=== PATIENT | male | born 1945 | race Caucasian/White ===

== ENCOUNTER 2020-07-24 10:27 | Outpatient (REF) | payer MEDICARE, SELFPAY ==
[2020-07-24 11:25] LABS: Cholesterol 123 mg/dL; HDL Cholesterol 48 mg/dL; LDL Cholesterol Calculated 63 mg/dl; Triglycerides 64 mg/dL
[2020-07-24 11:47] LABS: Thyroid Stimulating Hormone 1.43 uIU/mL (0.32-4.0)
== END 2020-07-24 10:28 | disposition home or self-care (01) ==
LOC: HO.LAB 10:27
PROVIDERS: PCP Internal Medicine; Visit Provider Internal Medicine
DX: I10 Essential (primary) hypertension (principal)
CPT/HCPCS: 36415; 80061; 84443

== ENCOUNTER 2021-06-11 10:05 | Outpatient (REF) | payer MEDICARE, SELFPAY ==
[2021-06-11 10:32] LABS: MANUAL DIFF FLAG NO
[2021-06-11 11:28] LABS: Basophils Percent Auto 0.4 % (0-2); Eosinophils Absolute Auto 0.2 X10*3/uL (0.0-0.4); Eosinophils Percent Auto 2.1 % (0-4); Hematocrit 44.9 % (42.0-52.0); Hemoglobin 15.6 g/dl (14.0-18.0); Imm Gran Abs Auto 0.03 X10*3/uL (0.00-0.03); Imm Gran Pct Auto 0.4 % (0.0-0.4); Lymphocytes Absolute Auto 1.5 X10*3/uL (1.2-4.9); Lymphocytes Percent Auto 18.9 % (20-40); Mean Corpuscular HGB Conc 34.7 g/dl (31.0-36.0); Mean Corpuscular Hemoglobin 31.5 pg (27.0-33.0); Mean Corpuscular Volume 90.7 fL (80.0-98.0); Mean Platelet Volume 10.9 fL (9.4-12.4); Monocytes Absolute Auto 0.9 X10*3/uL (0.1-1.2); Monocytes Percent Auto 10.8 % (2-11); Neutrophils Absolute Auto 5.4 x10*3/uL (2.0-8.3); Neutrophils Percent Auto 67.4 % (45-73); Platelet Count 196 X10*3/uL (160-400); Red Blood Count 4.95 X10*6/uL (4.60-5.80); Red Cell Distribution Width 12.2 % (11.0-16.0)
[2021-06-11 11:40] LABS: Estimated Average Glucose 117 mg/dL; Hemoglobin A1c % 5.7 %
[2021-06-11 11:46] LABS: Alanine Aminotransferase 13 U/L (0-40); Alkaline Phosphatase 69 U/L (39-117); Anion Gap 11 (12-20); Aspartate Amino Transferase 14 U/L (5-37); Bilirubin Total 1.4 mg/dL (0.0-1.0); Blood Urea Nitrogen 18 mg/dL (9-16); Calcium 9.1 mg/dL (8.4-10.2); Carbon Dioxide 27 mmol/L (22-29); Chloride 108 mmol/L (96-108); Cholesterol 120 mg/dL; Estimated Glomerular Filt Rate > 60; Glucose Fasting 113 mg/dL (60-99); HDL Cholesterol 50 mg/dL; LDL Cholesterol Calculated 57 mg/dl; Potassium 3.5 mmol/L (3.3-5.1); Sodium 142 mmol/L (135-145); Total Protein 6.4 g/dL (6.5-8.0); Triglycerides 65 mg/dL
[2021-06-11 12:08] LABS: Thyroid Stimulating Hormone 1.79 uIU/mL (0.32-4.0)
== END 2021-06-11 10:06 | disposition home or self-care (01) ==
LOC: HO.LAB 10:05
PROVIDERS: PCP Internal Medicine; Visit Provider Internal Medicine
DX: Z00.00 Encounter for general adult medical examination without abnormal findings (principal); E11.9 Type 2 diabetes mellitus without complications; E03.9 Hypothyroidism, unspecified
CPT/HCPCS: 36415; 80053; 80061; 83036; 84443; 85025

== ENCOUNTER 2022-03-18 09:48 | Outpatient (REF) | payer MEDICARE, SELFPAY ==
[2022-03-18 10:15] LABS: MANUAL DIFF FLAG NO
[2022-03-18 10:49] LABS: Basophils Absolute Auto 0.1 X10*3/uL (0.0-0.2); Basophils Percent Auto 0.7 % (0-2); Eosinophils Absolute Auto 0.2 X10*3/uL (0.0-0.4); Eosinophils Percent Auto 2.6 % (0-4); Hematocrit 44.9 % (42.0-52.0); Hemoglobin 15.4 g/dl (14.0-18.0); Imm Gran Abs Auto 0.03 X10*3/uL (0.00-0.03); Imm Gran Pct Auto 0.4 % (0.0-0.4); Lymphocytes Absolute Auto 1.4 X10*3/uL (1.2-4.9); Mean Corpuscular HGB Conc 34.3 g/dl (31.0-36.0); Mean Corpuscular Hemoglobin 31.1 pg (27.0-33.0); Mean Corpuscular Volume 90.7 fL (80.0-98.0); Mean Platelet Volume 10.5 fL (9.4-12.4); Monocytes Absolute Auto 0.9 X10*3/uL (0.1-1.2); Monocytes Percent Auto 12.1 % (2-11); Neutrophils Absolute Auto 5.1 x10*3/uL (2.0-8.3); Neutrophils Percent Auto 66.2 % (45-73); Platelet Count 219 X10*3/uL (160-400); Red Blood Count 4.95 X10*6/uL (4.60-5.80); Red Cell Distribution Width 12.3 % (11.0-16.0); White Blood Count 7.7 X10*3/uL (4.8-10.8)
[2022-03-18 11:19] LABS: Alanine Aminotransferase 12 U/L (0-40); Albumin Level 4.1 g/dL (3.5-5.0); Alkaline Phosphatase 79 U/L (39-117); Anion Gap 13 (12-20); Aspartate Amino Transferase 16 U/L (5-37); Bilirubin Total 1.5 mg/dL (0.0-1.0); Blood Urea Nitrogen 19 mg/dL (9-16); Calcium 9.6 mg/dL (8.4-10.2); Carbon Dioxide 29 mmol/L (22-29); Chloride 106 mmol/L (96-108); Cholesterol 116 mg/dL; Estimated Glomerular Filt Rate 60; Glucose Fasting 121 mg/dL (60-99); HDL Cholesterol 46 mg/dL; LDL Cholesterol Calculated 58 mg/dl; Potassium 3.6 mmol/L (3.3-5.1); Sodium 144 mmol/L (135-145); Total Protein 6.7 g/dL (6.5-8.0); Triglycerides 62 mg/dL
== END 2022-03-18 09:49 | disposition home or self-care (01) ==
LOC: HO.LAB 09:48
PROVIDERS: PCP Internal Medicine; Visit Provider Internal Medicine
DX: Z00.00 Encounter for general adult medical examination without abnormal findings (principal); Z13.0 Encounter for screening for diseases of the blood and blood-forming organs and certain disorders involving the immune mechanism
CPT/HCPCS: 36415; 80053; 80061; 85025

== ENCOUNTER 2022-10-27 08:19 | Day surgery (SDC) | payer MEDICARE, SELFPAY ==
[2022-10-27] MEDS: Sodium Phosphate,Mono-Dibasic 133 ML ENEMA PR (08:42)
[2022-10-27 09:01] VITALS: BMI 22.2
--- NOTE | 2022-10-27 09:05 | HO.ANESPROP2 ---
[facility] Active Problems Active Problems: All Active Problems (Updated 10/26/22 @ 08:18 by Alice Jones RN) Hyperlipidemia (Acute) Past Medical History Medical History Afib CHF (congestive heart failure) History of cardioversion HTN (hypertension) Hyperlipidemia Family History Family history of problems with anesthesia: No Surgical History Surgical History H/O colonoscopy No history of previous surgery Social History Social History Housing: House Alcohol intake: current Alcohol intake frequency: holidays/special occasions only Alcohol type: beer Patient Tobacco Use Status: Current someday Tobacco user Tobacco use type: Cigar e-Cigarette/Vaping Use: Never Used Second Hand Smoke Exposure: Yes Advance Directives: No Advance Directives Information Provided: Yes service: No Current occupational status: retired Cognitive needs: No Hearing needs: Yes (hear aide) Vision needs: Yes (glasses) Meds Allergies Allergy/AdvReac Type Severity Reaction Status Date / Time Shellfish Allergy Mild SWELLING Uncoded 10/27/22 08:05 Active Medications: Current Medications Lactated Ringer's (Lr) 1,000 mls @ 100 mls/hr IVCONT .Q10H KEZIA Sodium Biphosphate/Sodium Phosphate (Sodium Phosphate,Kane-Dibasic 133 Ml Enema) 133 ml OH ONCE PRN PRN Reason: Poor Colonoscopy Prep Results Last Admin: 10/27/22 08:42 Dose: 133 ml Home Medications Medication Instructions Recorded Confirmed Last Taken Type apixaban 5 mg tablet 5 mg PO BID 08/14/20 04/02/22 10/23/22 History atorvastatin 20 mg tablet 20 mg PO DAILY 08/14/20 04/02/22 Unknown History losartan 100 mg tablet 100 mg PO DAILY 08/14/20 04/02/22 Unknown History metoprolol tartrate 25 mg tablet 25 mg PO BID 08/14/20 04/02/22 10/27/22 06:00 History chlorthalidone 25 mg tablet 25 mg PO DAILY 04/02/22 04/02/22 Unknown History diltiazem HCl 120 mg 120 mg PO DAILY 04/02/22 04/02/22 Unknown History capsule,extended release 24 hr Exam Exam Date and Time: October 27, 2022 0905 Airway Mallampati Class: II TM Dist: >3cm Neck ROM: Full Heart: irreg reg. Lungs: CTA Assessment and Plan Final Anesthetic Review Family History of Problems with Anesthesia: No NPO: Yes ASA Class: II Final Preanesthetic Review: Meds/Allgs Chart Reviewed, Consent Obtained/Reviewed and Anes Risks/Benef Reviewed Patient Risk: Intermediate Procedure Risk: Low Assessment/Block/Sedation in SS: Assess/Block/Sedation-SS Anesthetic Plan Anesthetic Plan: MAC: Disposition: Standard PACU
[2022-10-27 09:06] VITALS: BP 178/88; PULSE 62; RESP 18; TEMP 36.4; O2SAT 99
[2022-10-27] MEDS: Lactated Ringers 1,000 ML 100 ML IVCONT (09:11)
[2022-10-27 10:56] VITALS: BP 104/56; PULSE 61; RESP 12; TEMP 36.4; O2SAT 96
--- NOTE | 2022-10-27 11:01 | P.BOP_ITS ---
Brief Operative Note Date of Service: 10/27/22 Pre-op diagnosis: Screening Post-op diagnosis: other (Polyps) Procedure: Colonoscopy to the cecum with hot snare polypectomy x 4, and with placement of Resolution clips on each polypectomy site Surgeon: Pablo Mora Anesthesia: MAC Was an Plastics Fabricator used for this Procedure?: No Estimated blood loss (mL): 2.0 Pathology: other (A. Transverse colon polyps B. Ascending colon polyp C. Polyp opposite the Ileocecal valve) Condition: stable Disposition: PACU
[2022-10-27 11:11] VITALS: BP 127/66; PULSE 57; RESP 15; O2SAT 98
[2022-10-27 11:26] VITALS: BP 133/73; PULSE 59; RESP 16; TEMP 36.4; O2SAT 98
--- NOTE | 2022-10-27 11:47 | OP_ITS ---
DATE OF SERVICE: 10/27/2022 SURGEON: Pablo Mora MD INDICATIONS: The patient presents for a followup of personal history of tubular adenomas of the colon and need for colorectal cancer screening. Full consent has been obtained from him for this, including risks of bleeding and perforation. PREOPERATIVE DIAGNOSIS: POSTOPERATIVE DIAGNOSIS: PROCEDURE PERFORMED: Colonoscopy to the cecum with hot snare polypectomy x 4, and placement of 5 resolution clips. ESTIMATED BLOOD LOSS: COMPLICATIONS: ANESTHESIA: Monitored anesthesia care. ASSISTANTS: SPECIMENS: PREOPERATIVE DIAGNOSES: Colorectal cancer screening and personal history of tubular adenomas of the colon. POSTOPERATIVE DIAGNOSES: Colorectal cancer screening and personal history of tubular adenomas of the colon, colon polyps, diverticulosis, and internal hemorrhoids. DESCRIPTION OF PROCEDURE: The patient was placed in the left lateral decubitus position. The digital rectal exam revealed no abnormalities. The Miroi video pediatric colonoscope was entered into the rectum and advanced easily to the cecum. Once in the cecum, I did identify a normal-appearing cecal pouch with appendiceal orifice and a normal-appearing ileocecal valve. The entire cecum and ileocecal valve appeared normal. The scope was then slowly withdrawn assessing all mucosal surfaces carefully. For the most part, preparation was excellent, although there was some residual liquid that had to be irrigated and suctioned away. In the very proximal ascending colon, on a fold opposite the ileocecal valve, was a flat, lobulated polyp measuring approximately 15 mm in diameter. This was removed in piecemeal fashion with multiple pieces recovered by suction. Post- polypectomy, there did not appear to be any definitive residual polyp tissue nor bleeding. Two resolution clips were placed with good deployment and good hemostasis. In the ascending colon was an approximately 10 mm polyp, which was removed by hot snare polypectomy and recovered by suction. The polypectomy site appeared clean, without any sign of residual polyp nor bleeding. A single clip was applied with good deployment and good hemostasis. In the transverse colon were 2 polyps, each approximately 10 mm in size. These were both removed by hot snare polypectomy and recovered by suction. The polypectomy sites appeared clean, without any sign of residual polyp nor bleeding. A single clip was applied to each polypectomy site with good deployment and good hemostasis. I did not visualize any other polyps, colitis, nor angiodysplasia. There was a mild amount of sigmoid diverticulosis. In the rectum, the scope was retroflexed visualizing internal hemorrhoids, but no other pathology. The rectal mucosa appeared normal. The scope was straightened and withdrawn from the patient. He tolerated the procedure well and was returned to the recovery area in stable condition. IMPRESSION: 1. Colon polyps. 2. Diverticulosis. 3. Internal hemorrhoids. PLAN: The results of the pathology will be checked. I would theoretically recommend another colonoscopy in 2 years for further screening and surveillance given these findings and his previous history. At that point, he would be 78 years old, and we would need to take his clinical condition into account. He was advised to resume his Eliquis in 48 hours. He was advised not to use any aspirin nor NSAIDs long-term while on Eliquis. He will otherwise see me on a p.r.n. basis. MD FOUZIA Sims/COY / [phone] MTDD
== END 2022-10-27 12:32 | disposition home or self-care (01) ==
PROVIDERS: PCP Internal Medicine; Visit Provider Internal Medicine
PROC: 0DJD8ZZ Inspection of Lower Intestinal Tract, Via Natural or Artificial Opening Endoscopic (ICD-10-PCS; CPT 45378; principal; 2022-10-27 09:30)
DX: Z12.11 Encounter for screening for malignant neoplasm of colon (principal); Z86.010 Personal history of colon polyps; D12.2 Benign neoplasm of ascending colon; K63.5 Polyp of colon; K57.30 Diverticulosis of large intestine without perforation or abscess without bleeding; K64.8 Other hemorrhoids; I48.91 Unspecified atrial fibrillation; I11.0 Hypertensive heart disease with heart failure; I50.9 Heart failure, unspecified; E78.5 Hyperlipidemia, unspecified; Z79.01 Long term (current) use of anticoagulants; Z79.899 Other long term (current) drug therapy; Z87.891 Personal history of nicotine dependence
CPT/HCPCS: 45385; 88305

== ENCOUNTER 2022-12-27 09:13 | Outpatient (REF) | payer MEDICARE, SELFPAY ==
[2022-12-27 09:30] LABS: MANUAL DIFF FLAG NO
[2022-12-27 10:16] LABS: Basophils Percent Auto 0.5 % (0-2); Eosinophils Absolute Auto 0.2 X10*3/uL (0.0-0.4); Eosinophils Percent Auto 2.1 % (0-4); Hematocrit 43.1 % (42.0-52.0); Hemoglobin 14.8 g/dl (14.0-18.0); Imm Gran Abs Auto 0.03 X10*3/uL (0.00-0.03); Imm Gran Pct Auto 0.4 % (0.0-0.4); Lymphocytes Absolute Auto 1.3 X10*3/uL (1.2-4.9); Lymphocytes Percent Auto 16.9 % (20-40); Mean Corpuscular HGB Conc 34.3 g/dl (31.0-36.0); Mean Corpuscular Hemoglobin 31.4 pg (27.0-33.0); Mean Corpuscular Volume 91.5 fL (80.0-98.0); Mean Platelet Volume 10.5 fL (9.4-12.4); Monocytes Absolute Auto 0.8 X10*3/uL (0.1-1.2); Neutrophils Absolute Auto 5.3 x10*3/uL (2.0-8.3); Neutrophils Percent Auto 69.1 % (45-73); Platelet Count 202 X10*3/uL (160-400); Red Blood Count 4.71 X10*6/uL (4.60-5.80); Red Cell Distribution Width 12.2 % (11.0-16.0); White Blood Count 7.6 X10*3/uL (4.8-10.8)
[2022-12-27 11:04] LABS: Alanine Aminotransferase 22 U/L (0-40); Albumin Level 4.2 g/dL (3.5-5.0); Alkaline Phosphatase 61 U/L (39-117); Anion Gap 16 (12-20); Aspartate Amino Transferase 21 U/L (5-37); Bilirubin Total 1.4 mg/dL (0.0-1.0); Blood Urea Nitrogen 19 mg/dL (9-16); Calcium 9.5 mg/dL (8.4-10.2); Carbon Dioxide 24 mmol/L (22-29); Chloride 109 mmol/L (96-108); Cholesterol 122 mg/dL; Estimated Glomerular Filt Rate 55; Glucose Fasting 116 mg/dL (60-99); HDL Cholesterol 53 mg/dL; LDL Cholesterol Calculated 57 mg/dl; Potassium 3.7 mmol/L (3.3-5.1); Sodium 145 mmol/L (135-145); Total Protein 6.9 g/dL (6.5-8.0); Triglycerides 60 mg/dL
[2022-12-27 11:07] LABS: Thyroid Stimulating Hormone 1.66 uIU/mL (0.32-4.0)
== END 2022-12-27 09:14 | disposition home or self-care (01) ==
LOC: HO.LAB 09:13
PROVIDERS: PCP Internal Medicine; Visit Provider Internal Medicine
DX: E78.5 Hyperlipidemia, unspecified (principal); N28.9 Disorder of kidney and ureter, unspecified; D64.9 Anemia, unspecified; E03.9 Hypothyroidism, unspecified
CPT/HCPCS: 36415; 80053; 80061; 84443; 85025

== ENCOUNTER 2023-04-05 10:44 | Outpatient (REF) | payer MEDICARE, SELFPAY ==
[2023-04-05 11:09] LABS: MANUAL DIFF FLAG NO
[2023-04-05 11:51] LABS: Basophils Absolute Auto 0.1 X10*3/uL (0.0-0.2); Basophils Percent Auto 0.7 % (0-2); Eosinophils Absolute Auto 0.1 X10*3/uL (0.0-0.4); Eosinophils Percent Auto 1.8 % (0-4); Hematocrit 40.5 % (42.0-52.0); Hemoglobin 14.2 g/dl (14.0-18.0); Imm Gran Abs Auto 0.02 X10*3/uL (0.00-0.03); Imm Gran Pct Auto 0.3 % (0.0-0.4); Lymphocytes Absolute Auto 1.6 X10*3/uL (1.2-4.9); Lymphocytes Percent Auto 21.4 % (20-40); Mean Corpuscular HGB Conc 35.1 g/dl (31.0-36.0); Mean Corpuscular Hemoglobin 32.3 pg (27.0-33.0); Mean Platelet Volume 10.7 fL (9.4-12.4); Monocytes Absolute Auto 0.9 X10*3/uL (0.1-1.2); Monocytes Percent Auto 11.4 % (2-11); Neutrophils Absolute Auto 4.9 x10*3/uL (2.0-8.3); Neutrophils Percent Auto 64.4 % (45-73); Platelet Count 201 X10*3/uL (160-400); Red Cell Distribution Width 12.7 % (11.0-16.0); White Blood Count 7.6 X10*3/uL (4.8-10.8)
[2023-04-05 12:48] LABS: Thyroid Stimulating Hormone 0.99 uIU/mL (0.32-4.0)
== END 2023-04-05 10:45 | disposition home or self-care (01) ==
LOC: HO.LAB 10:44
PROVIDERS: PCP Internal Medicine; Visit Provider Internal Medicine
DX: E03.9 Hypothyroidism, unspecified (principal); D64.9 Anemia, unspecified
CPT/HCPCS: 36415; 84443; 85025

== ENCOUNTER 2023-04-07 10:38 | Outpatient (AMB) | payer MEDICARE, SELFPAY ==
[2023-04-07 10:41] VITALS: BP 142/66; PULSE 63; O2SAT 99; BMI 22.9
--- NOTE | 2023-04-07 10:41 | MHC.PC.OV ---
Vital Signs 04/07/23 10:41 Height 5 ft 7 in Weight 146 lb BMI 22.9 BP 142/66 H Blood Pressure Location Lt brachial Position Sitting Pulse 63 Pulse Source Pulse Oximeter Pulse Oximetry (%) 99 Oxygen Delivery Method Room Air Intake Visit Reasons: 6 month f/u Winder Hand Required: No Corporate Relations Manager: Not Required per policy Accompanied by: Self / Same As Patient Allergies Shellfish Allergy (Mild, Uncoded 04/07/23 10:42) SWELLING Medication List - Last Reconciled 04/07/23 by Wayne Duarte MD apixaban 5 mg PO BID atorvastatin 20 mg PO DAILY chlorthalidone 25 mg PO DAILY diltiazem HCl 120 mg PO DAILY losartan 100 mg PO DAILY metoprolol tartrate 25 mg PO BID Tobacco use date assessed: 09/30/22 Fall risk assessment: No Falls in past year Last assessed Fall Risk: 04/07/23 Dental Screening Dental Screen Date: 04/07/23 Did you have a dental visit in the last 12 months?: No Did you have a dental problem in the last 6 months where you did not have access to dental care?: No Was dental information given to patient?: Patient has dentist HPI 6 month f/u HPI Details hyperlipidemia hypertension and atrial flutter; sees cardiology and doing well; compliant [facility] Medical History (Updated 04/07/23 @ 12:08 by Wayne Duarte MD) History of cardioversion Afib CHF (congestive heart failure) HTN (hypertension) Hyperlipidemia Surgical History H/O colonoscopy No history of previous surgery Social History Housing: House Alcohol intake: current Alcohol intake frequency: holidays/special occasions only Alcohol type: beer Patient Tobacco Use Status: Former Tobacco user Quit Date: quit 25 yrs ago Tobacco use type: Cigar e-Cigarette/Vaping Use: Never Used Second Hand Smoke Exposure: Yes service: No Current occupational status: retired Cognitive needs: No Hearing needs: Yes (hear aide) Vision needs: Yes (glasses) Questionnaire PHQ-9 Over the last 2 weeks, how often have you been bothered by any of the following problems? 1. Little interest or pleasure in doing things: not at all 2. Feeling down, depressed, or hopeless: not at all 3. Trouble falling or staying asleep, or sleeping too much: not at all 4. Feeling tired or having little energy: not at all 5. Poor appetite or overeating: not at all 6. Feeling bad about yourself - or that you are a failure or have let yourself or your family down: not at all 7. Trouble concentrating on things, such as reading the newspaper or watching television: not at all 8. Moving or speaking so slowly that other people could have noticed. Or the opposite - being so fidgety or restless that you have been moving around a lot more than usual: not at all 9. Thoughts that you would be better off or of hurting yourself in some way: not at all Total score: 0 Depression Screening Interpretation: Negative Depression Screening Done: Yes 04211 - PHQ-9 Billing: Yes Source: Developed by Drs. Pablo Flor, Vishal Hernandez and colleagues, with an educational mike from [employer]. Thrive Questionnaire Date Thrive assessed: 09/30/22 AUDIT C Alcohol Use Questionnaire (AUDIT-C) 1. How often do you have a drink containing alcohol?: 2-4 times a month 2. How many drinks containing alcohol do you have on a typical day when you are drinking?: 1 or 2 3. How often do you have six or more drinks on one occasion?: Never Total Score: 2 Score Reviewed/Action Taken: Yes ADRIAN-7 AMB Questionnaire ADRIAN-7 Date ADRIAN - 7 assessed: 09/30/22 Source: Developed by Drs. Pablo Flor, No Mora, Vishal Urena and colleagues, with an educational mike from [employer]. Review of Systems Const Denies chills, Denies headache(s) and Denies weight loss ENT Denies headache(s) Card Denies chest pain, Denies syncope, Denies irregular heart rhythm and Denies dyspnea Resp Denies chest congestion, Denies cough and Denies dyspnea GI Denies abdominal pain, Denies change in stool character, Denies nausea and Denies vomiting Musc Denies deformity and Denies joint swelling Neuro Denies syncope and Denies headache(s) Physical exam (Primary Care) Vital Signs: Last Vital Signs Pulse 63 04/07/23 10:41 BP 142/66 H 04/07/23 10:41 Pulse Ox 99 04/07/23 10:41 Oxygen Delivery Method Room Air 04/07/23 10:41 BMI result Body Mass Index 22.9 Tobacco/Smoking Status: Tobacco use Status Tobacco use date assessed 09/30/22 04/07/23 10:44 Patient Tobacco Use Status Former Tobacco user 04/07/23 10:44 Tobacco use type Cigar 04/07/23 10:44 e-Cigarette/Vaping Use Never Used 04/07/23 10:44 PHQ-9: PHQ-9 Score PHQ-9: Total score 0 04/07/23 10:44 Depression Screening Interpretation: Negative Thrive Assessment: Date of Thrive Assessment Date Thrive assessed 09/30/22 04/07/23 10:44 Const General: cooperative, comfortable, no acute distress and alert Neck Neck: Yes no lymphadenopathy Thyroid: Thyroid normal Resp Effort & Inspection: normal respiratory effort Auscultation: clear to auscultation bilaterally Percussion: percussion normal Cardio Jugular venous distension: no JVD Palpation: normal PMI Rate: regular rate Rhythm: regular rhythm Heart sounds: S1 normal heart sound present and S2 normal heart sound present GI Inspection: Yes normal to inspection Palpation (GI): No hepatosplenomegaly present Skin General skin exam: no rashes or lesions noted Extrem General: Yes no clubbing, cyanosis or edema Assessment and Plan Assessment & Plan (1) Hyperlipidemia: Code(s): E78.5 - Hyperlipidemia, unspecified Plan: stable; same rx (2) Atrial flutter: Code(s): I48.92 - Unspecified atrial flutter Plan: stable; same rx (3) HTN (hypertension): Code(s): I10 - Essential (primary) hypertension Plan: stable; same rx Orders: Orders Comprehensive [place]. Panel Fast Today N28.9 - Disorder of kidney and ureter, unspecified Lipid Panel Today E78.5 - Hyperlipidemia, unspecified Thyroid Stimulating Hormone Today E03.9 - Hypothyroidism, unspecified Complete Blood Count Auto Diff Today D64.9 - Anemia, unspecified Coding Level of Care Code Est Pt Level 4 (36640) Diagnoses Hyperlipidemia E78.5 Atrial flutter I48.92 HTN (hypertension) I10
== END 2023-04-07 11:16 | disposition home or self-care (01) ==
PROVIDERS: Visit Provider Internal Medicine
DX: E78.5 Hyperlipidemia, unspecified (principal); I48.92 Unspecified atrial flutter; I10 Essential (primary) hypertension
CPT/HCPCS: 99214

== ENCOUNTER 2023-08-10 10:04 | Outpatient (REF) | payer MEDICARE, SELFPAY ==
[2023-08-10 10:29] LABS: MANUAL DIFF FLAG NO
[2023-08-10 11:48] LABS: Basophils Absolute Auto 0.1 X10*3/uL (0.0-0.2); Basophils Percent Auto 0.7 % (0-2); Eosinophils Absolute Auto 0.2 X10*3/uL (0.0-0.4); Eosinophils Percent Auto 2.8 % (0-4); Hematocrit 43.8 % (42.0-52.0); Hemoglobin 15.3 g/dl (14.0-18.0); Imm Gran Abs Auto 0.02 X10*3/uL (0.00-0.03); Imm Gran Pct Auto 0.3 % (0.0-0.4); Lymphocytes Absolute Auto 1.1 X10*3/uL (1.2-4.9); Lymphocytes Percent Auto 15.1 % (20-40); Mean Corpuscular HGB Conc 34.9 g/dl (31.0-36.0); Mean Corpuscular Hemoglobin 31.7 pg (27.0-33.0); Mean Corpuscular Volume 90.7 fL (80.0-98.0); Mean Platelet Volume 10.5 fL (9.4-12.4); Monocytes Absolute Auto 0.9 X10*3/uL (0.1-1.2); Monocytes Percent Auto 12.1 % (2-11); Neutrophils Absolute Auto 5.1 x10*3/uL (2.0-8.3); Platelet Count 231 X10*3/uL (160-400); Red Blood Count 4.83 X10*6/uL (4.60-5.80); Red Cell Distribution Width 12.6 % (11.0-16.0); White Blood Count 7.4 X10*3/uL (4.8-10.8)
[2023-08-10 12:46] LABS: Alanine Aminotransferase 12 U/L (0-40); Alkaline Phosphatase 70 U/L (39-117); Anion Gap 11 (12-20); Aspartate Amino Transferase 16 U/L (5-37); Bilirubin Total 1.4 mg/dL (0.0-1.0); Blood Urea Nitrogen 19 mg/dL (9-16); Calcium 9.6 mg/dL (8.4-10.2); Carbon Dioxide 31 mmol/L (22-29); Chloride 106 mmol/L (96-108); Cholesterol 112 mg/dL (<200); Estimated Glomerular Filt Rate 59; Glucose Fasting 125 mg/dL (60-99); HDL Cholesterol 43 mg/dL (>40); LDL Cholesterol Calculated 54 mg/dL (<100); Potassium 3.1 mmol/L (3.3-5.1); Sodium 145 mmol/L (135-145); Thyroid Stimulating Hormone 1.14 uIU/mL (0.32-4.0); Total Protein 6.7 g/dL (6.5-8.0); Triglycerides 75 mg/dL (<150)
== END 2023-08-10 10:05 | disposition home or self-care (01) ==
LOC: HO.LAB 10:04
PROVIDERS: Absent Provider Internal Medicine Cardiovascular Disease; PCP Internal Medicine; Visit Provider Internal Medicine
DX: E78.5 Hyperlipidemia, unspecified (principal); N28.9 Disorder of kidney and ureter, unspecified; E03.9 Hypothyroidism, unspecified; D64.9 Anemia, unspecified
CPT/HCPCS: 36415; 80053; 80061; 84443; 85025

== ENCOUNTER 2023-11-30 12:54 | Outpatient (AMB) | payer MEDICARE, SELFPAY ==
[2023-11-30 12:56] VITALS: BP 140/70; PULSE 55; O2SAT 99; BMI 22.9
--- NOTE | 2023-11-30 12:56 | A.OFFPC_ITS ---
Vital Signs 11/30/23 12:56 Height 5 ft 7 in Weight 146 lb BMI 22.9 BP 140/70 H Blood Pressure Location Lt brachial Position Sitting Pulse 55 Pulse Source Pulse Oximeter Pulse Oximetry (%) 99 Oxygen Delivery Method Room Air Intake Visit Reasons: 6M follow up Dietetics Director Required: No Crop Pest Control Specialist: Not Required per policy Accompanied by: Self / Same As Patient Allergies Shellfish Allergy (Mild, Uncoded 11/30/23 12:56) SWELLING Medication List - Last Reconciled 12/02/23 by Wayne Duarte MD apixaban 5 mg PO BID atorvastatin 20 mg PO DAILY chlorthalidone 25 mg PO DAILY diltiazem HCl CD 120 mg PO DAILY losartan 100 mg PO DAILY metoprolol tartrate 25 mg PO ONCE Tobacco use date assessed: 11/30/23 Fall risk assessment: No Falls in past year Last assessed Fall Risk: 11/30/23 Dental Screening Dental Screen Date: 11/30/23 Did you have a dental visit in the last 12 months?: No Did you have a dental problem in the last 6 months where you did not have access to dental care?: No Was dental information given to patient?: Patient has dentist HPI 6M follow up HPI Details HTN hyperlipidemia and aflutter; stable; sees cardiology and doing well [facility] Medical History (Updated 04/07/23 @ 12:08 by Wayne Duarte MD) History of cardioversion Afib CHF (congestive heart failure) HTN (hypertension) Hyperlipidemia Surgical History H/O colonoscopy No history of previous surgery Social History Housing: House Alcohol intake: current Alcohol intake frequency: holidays/special occasions only Alcohol type: beer Patient Tobacco Use Status: Former Tobacco user Tobacco use type: Cigar e-Cigarette/Vaping Use: Never Used Second Hand Smoke Exposure: Yes service: No Current occupational status: retired Cognitive needs: No Hearing needs: Yes (hear aide) Vision needs: Yes (glasses) Questionnaire PHQ-9 Over the last 2 weeks, how often have you been bothered by any of the following problems? 1. Little interest or pleasure in doing things: not at all 2. Feeling down, depressed, or hopeless: more than half the days 3. Trouble falling or staying asleep, or sleeping too much: more than half the days 4. Feeling tired or having little energy: nearly every day 5. Poor appetite or overeating: not at all 7. Trouble concentrating on things, such as reading the newspaper or watching television: not at all 8. Moving or speaking so slowly that other people could have noticed. Or the opposite - being so fidgety or restless that you have been moving around a lot more than usual: not at all 9. Thoughts that you would be better off or of hurting yourself in some way: not at all 33883 - PHQ-9 Billing: Yes Source: Developed by Drs. Pablo Flor, No Mora, Vishal Urena and colleagues, with an educational mike from [employer]. Thrive Questionnaire Date Thrive assessed: 11/30/23 I am a: Patient What is your living situation today?: I have a steady place to live Within the past 12 months, did the food you bought not last and you didn't have the money to get more?: Never true Within the past 12 months, did you worry whether your food would run out before you got money to buy more?: Never true Do you have trouble paying for medicines?: No Do you have trouble getting transportation to medical appointments?: No Do you have trouble paying your heating and electricity bill?: No Do you have trouble taking care of your child, family member or friend?: No Do you have trouble with day-to-day activities such as bathing, preparing meals, shopping, managing finances, etc.?: No Are you currently unemployed and looking for a job?: No Are you interested in more education?: No Please select the resources that you would like help with: None THRIVE Score: 0 AUDIT C Alcohol Use Questionnaire (AUDIT-C) 1. How often do you have a drink containing alcohol?: 2-4 times a month 2. How many drinks containing alcohol do you have on a typical day when you are drinking?: 1 or 2 3. How often do you have six or more drinks on one occasion?: Never Total Score: 2 Score Reviewed/Action Taken: Yes ADRIAN-7 AMB Questionnaire ADRIAN-7 Date ADRIAN - 7 assessed: 11/30/23 Feeling nervous, anxious, or on edge: 0 = Not at all Not being able to stop or control worryin = Not at all Worrying too much about different things: 0 = Not at all Trouble relaxin = Not at all Being so restless that it is hard to sit still: 0 = Not at all Becoming easily annoyed or irritable: 0 = Not at all Feeling afraid as if something awful might happen: 0 = Not at all Total ADRIAN-7 score (0-4 normal; 5-9 mild; 10-14 moderate; 15-21 severe): 0 Source: Developed by Drs. Pablo Flor, No Mora, Vishal Urena and colleagues, with an educational mike from [employer]. Review of Systems Const Denies chills, Denies headache(s) and Denies weight loss ENT Denies headache(s) Card Denies chest pain, Denies syncope, Denies irregular heart rhythm and Denies dyspnea Resp Denies chest congestion, Denies cough and Denies dyspnea GI Denies abdominal pain, Denies change in stool character, Denies nausea and Denies vomiting Musc Denies deformity and Denies joint swelling Neuro Denies syncope and Denies headache(s) Physical exam (Primary Care) Vital Signs: Last Vital Signs Pulse 55 11/30/23 12:56 BP 140/70 H 11/30/23 12:56 Pulse Ox 99 11/30/23 12:56 Oxygen Delivery Method Room Air 11/30/23 12:56 BMI result Body Mass Index 22.9 Tobacco/Smoking Status: Tobacco use Status Tobacco use date assessed 11/30/23 11/30/23 12:57 Patient Tobacco Use Status Former Tobacco user 11/30/23 12:57 Tobacco use type Cigar 11/30/23 12:57 e-Cigarette/Vaping Use Never Used 11/30/23 12:57 PHQ-9: PHQ-9 Score PHQ-9: Total score 0 11/30/23 12:57 Thrive Assessment: Date of Thrive Assessment Date Thrive assessed 11/30/23 11/30/23 12:57 Const General: cooperative, comfortable, no acute distress and alert Neck Neck: Yes no lymphadenopathy Thyroid: Thyroid normal Resp Effort & Inspection: normal respiratory effort Auscultation: clear to auscultation bilaterally Percussion: percussion normal Cardio Jugular venous distension: no JVD Palpation: normal PMI Rate: regular rate Rhythm: regular rhythm Heart sounds: S1 normal heart sound present and S2 normal heart sound present GI Inspection: Yes normal to inspection Palpation (GI): No hepatosplenomegaly present Skin General skin exam: no rashes or lesions noted Extrem General: Yes no clubbing, cyanosis or edema Assessment and Plan Assessment & Plan (1) HTN (hypertension): Code(s): I10 - Essential (primary) hypertension Plan: staable; same rx (2) Atrial flutter: Code(s): I48.92 - Unspecified atrial flutter Plan: stable; per cardiology (3) Hyperlipidemia: Code(s): E78.5 - Hyperlipidemia, unspecified Plan: stable; do labs Orders: Orders Lipid Panel Today Z13.220 - Encounter for screening for lipoid disorders Coding Level of Care Code Est Pt Level 4 (94835) Diagnoses HTN (hypertension) I10 Atrial flutter I48.92 Hyperlipidemia E78.5
== END 2023-11-30 13:25 | disposition home or self-care (01) ==
PROVIDERS: PCP Internal Medicine; Visit Provider Internal Medicine
DX: I10 Essential (primary) hypertension (principal); I48.92 Unspecified atrial flutter; E78.5 Hyperlipidemia, unspecified
CPT/HCPCS: 99214

== ENCOUNTER 2024-01-20 10:14 | Outpatient (REF) | payer MEDICARE, SELFPAY ==
[2024-01-20 11:39] LABS: Anion Gap 11 (12-20); Blood Urea Nitrogen 18 mg/dL (9-16); Calcium 9.8 mg/dL (8.4-10.2); Carbon Dioxide 29 mmol/L (22-29); Chloride 106 mmol/L (96-108); Cholesterol 122 mg/dL (<200); Estimated Glomerular Filt Rate 55; Glucose Random 114 mg/dL (60-115); HDL Cholesterol 56 mg/dL (>40); LDL Cholesterol Calculated 58 mg/dL (<100); Potassium 3.4 mmol/L (3.3-5.1); Sodium 143 mmol/L (135-145); Triglycerides 44 mg/dL (<150)
== END 2024-01-20 10:15 | disposition home or self-care (01) ==
LOC: HO.LAB 10:14
PROVIDERS: Absent Provider Internal Medicine Cardiovascular Disease; PCP Internal Medicine; Visit Provider Internal Medicine
DX: I10 Essential (primary) hypertension (principal); I48.91 Unspecified atrial fibrillation; Z13.220 Encounter for screening for lipoid disorders
CPT/HCPCS: 36415; 80048; 80061

== ENCOUNTER 2024-02-16 10:02 | Outpatient (AMB) | payer MEDICARE, SELFPAY ==
--- NOTE | 2024-02-16 10:03 | AM.OFFWIN_ITS ---
Intake Vital Signs 3 02/16/24 10:04 Height 5 ft 7 in Weight 144 lb BMI 22.6 BP 134/78 Blood Pressure Location Rt brachial Position Sitting Pulse 94 Pulse Source Pulse Oximeter Temp 98.4 F Temp Source Oral Pulse Oximetry (%) 98 Oxygen Delivery Method Room Air Intake Visit Reasons: EP poison alyx on RT eye, swollen shut Intake Note: pt c/o poison alyx, LT eye swollen shut. Started Tuesday Patient Tobacco Use Status: Former Tobacco user Allergies Shellfish Allergy (Mild, Uncoded 02/16/24 10:03) SWELLING Do you need a note to return to daycare/school/sports/work: No HPI HPI Comments 2 History of Present Illness0 Details Patient is an 78-year-old male complaining of a rash on his face for 1 week. He states that the rash started with little vesicles and it was read at the base, eventually turned in to what it looks like now which is mostly scabbing and some yellow crusting which extends from the tip of his nose up through the right side of his right eye and forehead. His right eye is swollen shut, he denies any pain in this eye but he does endorse blurry vision. He states the rash is not really itchy and not really painful but he can not describe what it feels like. Patient states that when the rash 1st started they were small clear vesicles and were red at the base, he states they have since popped and crusted over, he has not applied any medications to try to make it better. [facility] Medical History (Updated 02/16/24 @ 10:55 by Erlinda Hendrix PA-C) History of cardioversion Afib CHF (congestive heart failure) HTN (hypertension) Hyperlipidemia Surgical History H/O colonoscopy No history of previous surgery Social History Housing: House Alcohol intake: current Alcohol intake frequency: holidays/special occasions only Alcohol type: beer Patient Tobacco Use Status: Former Tobacco user Tobacco use type: Cigar e-Cigarette/Vaping Use: Never Used Second Hand Smoke Exposure: Yes service: No Current occupational status: retired Cognitive needs: No Hearing needs: Yes (hear aide) Vision needs: Yes (glasses) Review of Systems Const All systems reviewed & are unremarkable except as noted in HPI and below Physical Exam Vital Signs: Last Vital Signs Temp 98.4 F 02/16/24 10:04 Pulse 94 02/16/24 10:04 BP 134/78 02/16/24 10:04 Pulse Ox 98 02/16/24 10:04 Oxygen Delivery Method Room Air 02/16/24 10:04 BMI result Body Mass Index 22.6 Const General: cooperative, healthy appearing, comfortable, no acute distress and well developed Orientation/consciousness: patient oriented x3 Limitations: no limitations Eyes General: appearance normal, both eyes and all related structures Resp Effort & Inspection: normal respiratory effort and able to speak in complete sentences Skin Other: 10cm x 8cm cluster of crusted lesions with an erythematous and yellow base in dermatome V1 extending from tip of the nose (+Casas's sign) to scalp, engrossing right eye and surrounding, right eye is swollen shut. Neuro General: patient oriented x3 Assessment & Plan Assessment & Plan (1) Shingles of eyelid: Code(s): B02.39 - Other herpes zoster eye disease Plan: As the rash is not itchy and is a week old it is difficult to discern; based on distribution, likely Shingles. Patient's presentation manager, Dr. Sera Martinez's office is closed until February 26 according to the voicemail so I called Dr. Rodriguez Burnett's office and got patient an appointment for this afternoon so he can have his eye evaluated. I did give him 60 mg prednisone in office get the swelling so Dr. Burnett can do a proper exam. Will send pred taper (2) Shingles rash: Code(s): B02.9 - Zoster without complications Qualifiers: Herpes zoster complications: with ocular involvement Herpes zoster ocular complication detail: unspecified herpes zoster eye disease Qualified Code(s): B02.30 - Zoster ocular disease, unspecified Plan: see above Plan see above Orders: Orders 2 AMB Prednisone Adult Dose Today B02.30 - Zoster ocular disease, unspecified, B02.39 - Other herpes zoster eye disease Medications: New 2 prednisone 20 mg PO ONCE 3 tabs 0RF eye swollen shut B02.30 - Zoster ocular disease, unspecified, B02.39 - Other herpes zoster eye disease Coding Level of Care Code Est Pt Level 5 (91135) Diagnoses Shingles of eyelid B02.39 Herpes zoster with ophthalmic complication, unspecified herpes zoster eye disease B02.30 Herpes zoster complications: with ocular involvement Herpes zoster ocular complication detail: unspecified herpes zoster eye disease
[2024-02-16 10:04] VITALS: BP 134/78; PULSE 94; TEMP 36.9; O2SAT 98; BMI 22.6
== END 2024-02-16 11:16 | disposition home or self-care (01) ==
PROVIDERS: PCP Internal Medicine; Visit Provider Physician Assistant
DX: B02.39 Other herpes zoster eye disease (principal); B02.30 Zoster ocular disease, unspecified

== ENCOUNTER → 2024-02-16 10:02 | Outpatient (BNVA) | payer MEDICARE, SELFPAY | PROVIDERS: PCP Internal Medicine | DX: B02.39 Other herpes zoster eye disease (principal); B02.30 Zoster ocular disease, unspecified | CPT/HCPCS: 99212 ==

== ENCOUNTER 2024-02-21 11:22 | Outpatient (AMB) | payer MEDICARE, SELFPAY ==
--- NOTE | 2024-02-21 11:43 | A.OFFPC_ITS ---
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 Accompanied by: Self / Same As Patient Allergies Shellfish Allergy (Mild, Uncoded 02/21/24 11:44) SWELLING Medication List - Last Reconciled 02/22/24 by Wayne Duarte MD apixaban 5 mg PO BID atorvastatin 20 mg PO DAILY chlorthalidone 25 mg PO DAILY diltiazem HCl CD 120 mg PO DAILY erythromycin 0.5 inches ophthalmic (eye) TID losartan 100 mg PO DAILY metoprolol tartrate 25 mg PO ONCE prednisone 20 mg PO DAILY valacyclovir 1,000 mg PO BID Tobacco use date assessed: 11/30/23 Fall risk assessment: No Falls in past year Last assessed Fall Risk: 02/21/24 Dental Screening Dental Screen Date: 11/30/23 HPI Shingles on face HPI Details shingles on left side of face for a week PFSH Medical History (Updated 02/16/24 @ 10:55 by Erlinda Hendrix PA-C) History of cardioversion Afib CHF (congestive heart failure) HTN (hypertension) Hyperlipidemia Surgical History H/O colonoscopy No history of previous surgery Social History Housing: House Alcohol intake: current Alcohol intake frequency: holidays/special occasions only Alcohol type: beer Patient Tobacco Use Status: Former Tobacco user Tobacco use type: Cigar e-Cigarette/Vaping Use: Never Used Second Hand Smoke Exposure: Yes service: No Current occupational status: retired Cognitive needs: No Hearing needs: Yes (hear aide) Vision needs: Yes (glasses) Questionnaire PHQ-9 Over the last 2 weeks, how often have you been bothered by any of the following problems? 1. Little interest or pleasure in doing things: not at all 2. Feeling down, depressed, or hopeless: more than half the days 3. Trouble falling or staying asleep, or sleeping too much: more than half the days 4. Feeling tired or having little energy: nearly every day 5. Poor appetite or overeating: not at all 7. Trouble concentrating on things, such as reading the newspaper or watching television: not at all 8. Moving or speaking so slowly that other people could have noticed. Or the opposite - being so fidgety or restless that you have been moving around a lot more than usual: not at all 9. Thoughts that you would be better off or of hurting yourself in some way: not at all [address]1782 - PHQ-9 Billing: Yes Source: Developed by Drs. Pablo Flor, Vishal Hernandez and colleagues, with an educational mike from [employer]. Thrive Questionnaire Date Thrive assessed: 11/30/23 AUDIT C Alcohol Use Questionnaire (AUDIT-C) 1. How often do you have a drink containing alcohol?: 2-4 times a month 2. How many drinks containing alcohol do you have on a typical day when you are drinking?: 1 or 2 3. How often do you have six or more drinks on one occasion?: Never Total Score: 2 Score Reviewed/Action Taken: Yes ADRIAN-7 AMB Questionnaire ADRIAN-7 Date ADRIAN - 7 assessed: 11/30/23 Source: Developed by Drs. Pablo Flor, No Mora, Vishal Urena and colleagues, with an educational mike from [employer]. Review of Systems Const Denies chills, Denies headache(s) and Denies weight loss ENT Denies headache(s) Card Denies chest pain, Denies syncope, Denies irregular heart rhythm and Denies dyspnea Resp Denies chest congestion, Denies cough and Denies dyspnea GI Denies abdominal pain, Denies change in stool character, Denies nausea and Denies vomiting Musc Denies deformity and Denies joint swelling Neuro Denies syncope and Denies headache(s) Physical exam (Primary Care) Vital Signs: Last Vital Signs Pulse 65 02/21/24 11:44 BP 124/84 02/21/24 11:44 Pulse Ox 97 02/21/24 11:44 Oxygen Delivery Method Room Air 02/21/24 11:44 BMI result Body Mass Index 22.4 Tobacco/Smoking Status: Tobacco use Status Tobacco use date assessed 11/30/23 02/21/24 11:43 Patient Tobacco Use Status Former Tobacco user 02/21/24 11:43 Tobacco use type Cigar 02/21/24 11:43 e-Cigarette/Vaping Use Never Used 02/21/24 11:43 Thrive Assessment: Date of Thrive Assessment Date Thrive assessed 11/30/23 02/21/24 11:43 Const General: cooperative, comfortable, no acute distress and alert Neck Neck: Yes no lymphadenopathy Thyroid: Thyroid normal Resp Effort & Inspection: normal respiratory effort Auscultation: clear to auscultation bilaterally Percussion: percussion normal Cardio Jugular venous distension: no JVD Palpation: normal PMI Rate: regular rate Rhythm: regular rhythm Heart sounds: S1 normal heart sound present and S2 normal heart sound present GI Inspection: Yes normal to inspection Palpation (GI): No hepatosplenomegaly present Skin Other: shingles left side of forehead Extrem General: Yes no clubbing, cyanosis or edema Assessment and Plan Assessment & Plan (1) Shingles rash: Code(s): B02.9 - Zoster without complications Qualifiers: Herpes zoster complications: with ocular involvement Herpes zoster ocul ar complication detail: unspecified herpes zoster eye disease Qualified Code(s): B02.30 - Zoster ocular disease, unspecified Plan: rx sent Medications: New valacyclovir 1,000 mg PO BID 20 tabs 0RF Coding Level of Care Code Est Pt Level 3 (99634) Diagnoses Herpes zoster with ophthalmic complication, unspecified herpes zoster eye disease B02.30 Herpes zoster complications: with ocular involvement Herpes zoster ocular complication detail: unspecified herpes zoster eye disease
[2024-02-21 11:44] VITALS: BP 124/84; PULSE 65; O2SAT 97; BMI 22.4
== END 2024-02-21 12:51 | disposition home or self-care (01) ==
PROVIDERS: PCP Internal Medicine; Visit Provider Internal Medicine
DX: B02.30 Zoster ocular disease, unspecified (principal)

== ENCOUNTER → 2024-02-21 11:22 | Outpatient (BNVA) | payer MEDICARE, SELFPAY | PROVIDERS: PCP Internal Medicine; Visit Provider Internal Medicine | DX: B02.30 Zoster ocular disease, unspecified (principal) | CPT/HCPCS: 99212 ==

== ENCOUNTER 2024-03-10 11:00 | Outpatient (AMB) | payer MEDICARE, SELFPAY ==
[2024-03-10 11:01] VITALS: BP 142/80; PULSE 76; TEMP 36.7; O2SAT 98
--- NOTE | 2024-03-10 11:01 | AM.OFFWIN_ITS ---
Intake Vital Signs 03/10/24 11:01 Height 5 ft 7 in BP 142/80 H Blood Pressure Location Rt brachial Position Sitting Pulse 76 Pulse Source Pulse Oximeter Temp 98.0 F Temp Source Oral Pulse Oximetry (%) 98 Oxygen Delivery Method Room Air Intake Visit Reasons: EP Shingles 1 month, finished meds/not better Intake Note: pt is here for shingles for 1 month, finished medication but not feeling better Patient Tobacco Use Status: Former Tobacco user Allergies Shellfish Allergy (Mild, Uncoded 03/10/24 11:08) SWELLING Medication List - Last Reconciled 03/10/24 by Kim Saldivar, COMBAT CONTROL MANAGER-BC apixaban 5 mg PO BID atorvastatin 20 mg PO DAILY chlorthalidone 25 mg PO DAILY diltiazem HCl CD 120 mg PO DAILY erythromycin 0.5 inches ophthalmic (eye) TID losartan 100 mg PO DAILY metoprolol tartrate 25 mg PO ONCE Do you need a note to return to daycare/school/sports/work: No HPI HPI Comments History of Present Illness Details 78-year-old male here today for chief co mplaints of nerve pain status post shingles affecting his left eye. An initial walk-in visit note reviewed along with the primary care follow up note. The patient reports that he completed his prednisone and acyclovir. He also completed his erythromycin ointment to the left eye. Unfortunately although the rash itself has improved greatly in his almost gone he is now having nerve pain above his left eye that is affecting his ability to sleep and his quality of life. He was taking up to 6 tablets of Tylenol daily which is really not helping him any. Exam Awake alert oriented, no acute distress Mild edema localized around the left eye, 1 scab noted below left brow otherwise rash resolved Plan We will give him a prescription for gabapentin 100 mg. Advised for him to take this 3 times per day as needed, okay to take 300 mg at bedtime, max of 600 mg per day. Advised that the side effect profile could include unsteady gait and therefore fall risk education was provided. Advised to use sparingly and only as needed. Okay to use Tylenol although I do not think this is providing him enough benefit to be taking it 6 times per day. I recommend that he follow up with his primary care provider in about 6 weeks or so to ensure that there is proper control of his pain. I have given him plenty gabapentin to get him through this visit. Educated on reasons to return to a walk-in clinic. This note is constructed using voice recognition software. While every effort has been made to ensure accuracy in rental coordinator, still errors may have been included Sometimes, these errors may affect the content or meaning of the given sentence . Total time spent caring for the patient today was 30 minutes. This includes time spent before the visit reviewing the chart, time spent during the visit, and time spent after the visit on documentation [facility] Medical History (Updated 03/10/24 @ 11:20 by Kim Saldivar, [facility] [place]) History of cardioversion Afib CHF (congestive heart failure) HTN (hypertension) Hyperlipidemia Surgical History H/O colonoscopy No history of previous surgery Social History Housing: House Alcohol intake: current Alcohol intake frequency: holidays/special occasions only Alcohol type: beer Patient Tobacco Use Status: Former Tobacco user Tobacco use type: Cigar e-Cigarette/Vaping Use: Never Used Second Hand Smoke Exposure: Yes service: No Current occupational status: retired Cognitive needs: No Hearing needs: Yes (hear aide) Vision needs: Yes (glasses) Physical Exam Vital Signs: Last Vital Signs Temp 98.0 F 03/10/24 11:01 Pulse 76 03/10/24 11:01 BP 142/80 H 03/10/24 11:01 Pulse Ox 98 03/10/24 11:01 Oxygen Delivery Method Room Air 03/10/24 11:01 Assessment & Plan Assessment & Plan (1) Post herpetic neuralgia: Code(s): B02.29 - Other postherpetic nervous system involvement Plan: . Medications: New gabapentin take 1 tab three times per day as needed for pain; ok to take 300 mg at bedtime. Max 600 mg/day. 100 mg PO DIRECTED 30 days PRN 180 caps 1RF pain Coding Level of Care Code Est Pt Level 4 (00614) Diagnoses Post herpetic neuralgia B02.29
== END 2024-03-10 13:50 | disposition home or self-care (01) ==
PROVIDERS: PCP Internal Medicine; Visit Provider Nurse Practitioner Family
DX: B02.29 Other postherpetic nervous system involvement (principal)

== ENCOUNTER → 2024-03-10 11:00 | Outpatient (BNVA) | payer MEDICARE, SELFPAY | PROVIDERS: PCP Internal Medicine; Visit Provider Nurse Practitioner Family | DX: B02.29 Other postherpetic nervous system involvement (principal) | CPT/HCPCS: 99212 ==

== ENCOUNTER 2024-06-06 11:01 | Outpatient (AMB) | payer MEDICARE, SELFPAY ==
--- NOTE | 2024-06-06 11:03 | A.OFFPC_ITS ---
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 Accompanied by: Self / Same As Patient Allergies Shellfish Allergy (Mild, Uncoded 06/06/24 11:04) SWELLING Medication List - Last Reconciled 06/06/24 by Wayne Duarte MD amlodipine 2.5 mg PO DAILY apixaban 5 mg PO BID atorvastatin 20 mg PO DAILY chlorthalidone 25 mg PO DAILY diltiazem HCl CD 120 mg PO DAILY gabapentin 100 mg PO DIRECTED PRN 30 days losartan 100 mg PO DAILY metoprolol tartrate 25 mg PO ONCE tramadol 50 mg PO Q6-8H PRN 7 days Tobacco use date assessed: 06/06/24 Fall risk assessment: No Falls in past year Last assessed Fall Risk: 06/06/24 Dental Screening Dental Screen Date: 06/06/24 Did you have a dental visit in the last 12 months?: No Did you have a dental problem in the last 6 months where you did not have access to dental care?: No Was dental information given to patient?: No HPI 6 Month F/U HPI Details hypertension on rx; doing well and compliant [facility] Medical History (Updated 03/10/24 @ 11:20 by Kim Saldivar, [facility]) History of cardioversion Afib CHF (congestive heart failure) HTN (hypertension) Hyperlipidemia Surgical History H/O colonoscopy No history of previous surgery Social History Housing: House Alcohol intake: current Alcohol intake frequency: holidays/special occasions only Alcohol type: beer Patient Tobacco Use Status: Former Tobacco user Tobacco use type: Cigar e-Cigarette/Vaping Use: Never Used Second Hand Smoke Exposure: Yes service: No Current occupational status: retired Cognitive needs: No Hearing needs: Yes (hear aide) Vision needs: Yes (glasses) Questionnaire PHQ-9 Over the last 2 weeks, how often have you been bothered by any of the following problems? 1. Little interest or pleasure in doing things: not at all 2. Feeling down, depressed, or hopeless: more than half the days 3. Trouble falling or staying asleep, or sleeping too much: more than half the days 4. Feeling tired or having little energy: nearly every day 5. Poor appetite or overeating: not at all 7. Trouble concentrating on things, such as reading the newspaper or watching television: not at all 8. Moving or speaking so slowly that other people could have noticed. Or the opposite - being so fidgety or restless that you have been moving around a lot more than usual: not at all 9. Thoughts that you would be better off or of hurting yourself in some way: not at all 29688 - PHQ-9 Billing: Yes Source: Developed by Drs. Pablo Flor, No Mora, Vishal Urena and colleagues, with an educational mike from [employer]. Thrive Questionnaire Date Thrive assessed: 06/06/24 I am a: Patient What is your living situation today?: I have a steady place to live Within the past 12 months, did the food you bought not last and you didn't have the money to get more?: Never true Within the past 12 months, did you worry whether your food would run out before you got money to buy more?: Never true Do you have trouble paying for medicines?: No Do you have trouble getting transportation to medical appointments?: No Do you have trouble paying your heating and electricity bill?: No Do you have trouble taking care of your child, family member or friend?: No Do you have trouble with day-to-day activities such as bathing, preparing meals, shopping, managing finances, etc.?: No Are you currently unemployed and looking for a job?: No Are you interested in more education?: No Please select the resources that you would like help with: None Currently or been in a relationship where the following occur: No concerns reported THRIVE Score: 0 AUDIT C Alcohol Use Questionnaire (AUDIT-C) 1. How often do you have a drink containing alcohol?: 2-4 times a month 2. How many drinks containing alcohol do you have on a typical day when you are drinking?: 1 or 2 3. How often do you have six or more drinks on one occasion?: Never Total Score: 2 Score Reviewed/Action Taken: Yes ADRIAN-7 AMB Questionnaire ADRIAN-7 Date ADRIAN - 7 assessed: 06/06/24 Feeling nervous, anxious, or on edge: 0 = Not at all Not being able to stop or control worryin = Not at all Worrying too much about different things: 0 = Not at all Trouble relaxin = Not at all Being so restless that it is hard to sit still: 0 = Not at all Becoming easily annoyed or irritable: 0 = Not at all Feeling afraid as if something awful might happen: 0 = Not at all Total ADRIAN-7 score (0-4 normal; 5-9 mild; 10-14 moderate; 15-21 severe): 0 Source: Developed by Drs. Pablo Flor, No Mora, Vishal Urena and colleagues, with an educational mike from [employer]. Review of Systems Const Denies chills, Denies headache(s) and Denies weight loss ENT Denies headache(s) Card Denies chest pain, Denies syncope, Denies irregular heart rhythm and Denies dyspnea Resp Denies chest congestion, Denies cough and Denies dyspnea GI Denies abdominal pain, Denies change in stool character, Denies nausea and Denies vomiting Musc Denies deformity and Denies joint swelling Neuro Denies syncope and Denies headache(s) Physical exam (Primary Care) Vital Signs: Last Vital Signs Pulse 53 06/06/24 11:04 BP 158/86 H 06/06/24 11:04 Pulse Ox 97 06/06/24 11:04 Oxygen Delivery Method Room Air 06/06/24 11:04 BMI result Body Mass Index 24.1 Tobacco/Smoking Status: Tobacco use Status Tobacco use date assessed 06/06/24 06/06/24 11:10 Patient Tobacco Use Status Former Tobacco user 06/06/24 11:10 Tobacco use type Cigar 06/06/24 11:10 e-Cigarette/Vaping Use Never Used 06/06/24 11:10 Thrive Assessment: Date of Thrive Assessment Date Thrive assessed 06/06/24 06/06/24 11:10 Currently or been in a relationship where the following occur: No concerns reported Const General: cooperative, comfortable, no acute distress and alert Neck Neck: Yes no lymphadenopathy Thyroid: Thyroid normal Resp Effort & Inspection: normal respiratory effort Auscultation: clear to auscultation bilaterally Percussion: percussion normal Cardio Jugular venous distension: no JVD Palpation: normal PMI Rate: regular rate Rhythm: regular rhythm Heart sounds: S1 normal heart sound present and S2 normal heart sound present GI Inspection: Yes normal to inspection Palpation (GI): No hepatosplenomegaly present Skin General skin exam: no rashes or lesions noted Extrem General: Yes no clubbing, cyanosis or edema Coding Level of Care Code Est Pt Level 3 (86737) Diagnoses HTN (hypertension) I10 Additional Codes PHQ-9 - 22152 - PHQ-9 Billing: Yes ([id number]) Assessment & Plan Assessment & Plan (1) HTN (hypertension): Code(s): I10 - Essential (primary) hypertension Category: Medical Plan: stable; same rx
[2024-06-06 11:04] VITALS: BP 158/86; PULSE 53; O2SAT 97; BMI 24.1
--- OUTSIDE RECORDS SUMMARY | 2024-06-06 11:22 | XMS_ITS | Patient Health Record ---
Author Organization [facility] Address [address] [place] [address] Care Team Providers Care Vp Software Engineering Name Role Phone Wayne Duarte MD Primary Care Provider Pablo Horton Unavailable [phone] ALLERGIES Allergen (clinical drug ingredient) Drug/Non Drug Allergy documented on EMR Reaction Allergy Type Onset Date Status Shellfish (FN) shellfish (uncoded) Unknown Allergy Active REASON FOR REFERRAL No Information MEDICATIONS Medication SIG (Take, Route, Frequency, Duration) Notes Start Date End Date Status Metoprolol Tartrate 25 MG 1 tablet Orall y Twice a day Active Diltiazem CD 180 MG 1 capsule Orally Onc e a day Active Chlorthalidone 25 MG 1 tablet in the morning Orally Once a day Active Aspirin Adult Low Dose 81 MG 1 tablet Orally Once a day Not-Taking Eliquis 5 MG 1 tablet Orally Twic e a day for 30 day(s) Active Warfarin Sodium 2.5 MG 1 tablet Orally O nce a day/as directed Not-Taking Atorvastatin Calcium 20 MG 1 tablet Oral ly Once a day Active Losartan Potassium 100 MG 1 tablet Orall y Once a day Active IMMUNIZATIONS Vaccine Route Administration Date Status Comme nts Pneumococcal Unknown 01/28/2015 Administered Influenza Unknown 03/17/2022 Administered Influenza Unknown 12/12/2018 Refused SOCIAL HISTORY Tobacco Use: Social History Observation Description Date Details (start date - stop date) Never Smoker NA - NA Sex Assigned At : Social History Observation Description Sex Assigned At Unknown Tobacco Use/Smoking Question Answer Notes Patient is a nonsmoker PROBLEMS Problem Type ICD Code Onset Dates Problem Status W/U Status Risk SNOMED Code Notes Problem Long-term use of aspirin therapy (Z79.82) Active confirmed 161860422 Problem Encounter for screening for malignant neoplasm of colon (Z12.11) Active confirmed 671169872 Problem Encounter for screening for malignant neoplasm of rectum (Z12.12) Active confirmed Screening for malignant neoplasm of rectum (726556485) Problem Long-term (current) use of anticoagulants (Z79.01) Active confirmed 059259406 Problem History of adenomatous polyp of colon (Z86.010) Active confirmed 711224113 Problem Colon cancer screening (Z12.11) Active confirmed 703443992 Problem Diverticulosis of large intestine without perforation or abscess without bleeding (K57.30) Active confirmed Diverticul ar disease of colon (638834098) PLAN OF TREATMENT Pending Test Test Name Order Date Pathology 10/27/2022 Future Test Test Name Order Date COLONOSCOPY 06/19/2015 COLONOSCOPY 12/12/2018 COLONOSCOPY 08/20/2022 Insurance Providers Payer Name Payer Address Payer Phone Subscriber Number Group Number Insured Name Patient Relationship to Insured Coverage Start Date Coverage End Date MEDICARE OF [place] [address] [place] [address] [id number] CONSTANZA VELÁSQUEZ Self - patient is the insured [employer] ATT[employer] CLAIMS [address] [place] [address] [id number] CONSTANZA VELÁSQUEZ Self - patient is the insured MEDICAL (GENERAL) HISTORY Medical History History ICD Code Hypertension I10 CHF Denies NH ,DM,CVA,Lung disease, renal di sease Atrial fibrillation--sees Dr. Yip-s/p cardioversion x 2, without success Hyperlipidemia Screening colonoscopy 07/2015 with 3 flat > 1cm adenomas removed from cecum and ascending colon F/U Colonoscopy in 03/2019 with removal of several tubual adenomas Surgical History Surgery Date(Month/Year) cataract-lens implants
== END 2024-06-06 11:47 | disposition home or self-care (01) ==
PROVIDERS: PCP Internal Medicine; Visit Provider Internal Medicine
DX: I10 Essential (primary) hypertension (principal)

== ENCOUNTER → 2024-06-06 11:01 | Outpatient (BNVA) | payer MEDICARE, SELFPAY | PROVIDERS: PCP Internal Medicine; Visit Provider Internal Medicine | DX: I10 Essential (primary) hypertension (principal) | CPT/HCPCS: 96127; 99212 ==

== ENCOUNTER 2024-11-19 10:56 | Outpatient (REF) | payer MEDICARE, SELFPAY ==
[2024-11-19 12:04] LABS: Anion Gap 11 (12-20); Blood Urea Nitrogen 17 mg/dL (9-16); Calcium 9.2 mg/dL (8.4-10.2); Carbon Dioxide 29 mmol/L (22-29); Chloride 104 mmol/L (96-108); Cholesterol 128 mg/dL (<200); Estimated Glomerular Filt Rate 58; Glucose Random 127 mg/dL (60-115); HDL Cholesterol 51 mg/dL (>40); LDL Cholesterol Calculated 63 mg/dL (<100); Potassium 3.4 mmol/L (3.3-5.1); Sodium 141 mmol/L (135-145); Triglycerides 73 mg/dL (<150)
--- OUTSIDE RECORDS SUMMARY | 2024-11-19 12:26 | XMS_ITS | Clinical Summary ---
Author Organization [facility] Address [address] [place] [address] Care Team Providers Care Computer Networker Name Role Phone Unavailable Primary Care Provider Unavailabl e Social History Tobacco Use Types Packs/Day Years Used Date Smoking Tobacco: Never Assessed Sex and Gender Information Value Date Recorded Sex Assigned at Not on file Gender Identity Not on file Sexual Orientation Not on file Plan of Treatment Not on file
[2024-11-20 09:04] LABS: NT-proBNP 2219 pg/mL (<450)
== END 2024-11-19 10:57 | disposition home or self-care (01) ==
LOC: HO.LAB 10:56
PROVIDERS: Visit Provider Internal Medicine Cardiovascular Disease
DX: I50.9 Heart failure, unspecified (principal); I10 Essential (primary) hypertension; E78.2 Mixed hyperlipidemia; I48.91 Unspecified atrial fibrillation
CPT/HCPCS: 36415; 80048; 80061; 83880

== ENCOUNTER 2025-05-29 06:41 | Day surgery (SDC) | payer MEDICARE, SELFPAY ==
[2025-05-27 12:02] VITALS: BMI 23.6
--- NOTE | 2025-05-28 12:00 | HO.ANESPROP2 ---
Documented by User: Altagracia Ponce NP 05/28/25 14:29 HPI - Anesthesia Eval Consult details Narrative: 79 yr old male for colonoscopy Follows with [facility], last visit 05/09/25, note states mild to moderate risk for procedure . CHF: euvolemic at 04/2025 cardiology visit; last echo from 2022 (below). Afib: on eliquis, rate controlled on metoprolol. Stable at PCP visit 05/2024 PMF Active Problems Active Problems: All Active Problems (Updated 05/27/25 @ 11:55 by Meg Oates RN) Post herpetic neuralgia (Acute) Shingles rash (Acute) Shingles of eyelid (Acute) Atrial flutter (Acute) HTN (hypertension) (Acute) Hyperlipidemia (Acute) Past Medical History Medical History Colon polyp History of cardioversion Afib CHF (congestive heart failure) HTN (hypertension) Hyperlipidemia Family History Family history of problems with anesthesia: No Surgical History Surgical History Hx of bilateral cataract extraction H/O colonoscopy No history of previous surgery Social History Social History Housing: House Are you a primary healthcare network consultant to a significant other at home: No Do you presently have visiting nurse or other home services: No Alcohol intake: current Alcohol intake frequency: does not drink Alcohol type: beer Patient Tobacco Use Status: Former Tobacco user Tobacco use type: Cigar e-Cigarette/Vaping Use: Never Used Second Hand Smoke Exposure: No Use of substances other than those prescribed or required for medical reasons: No Have you been hit, kicked, punched, or otherwise hurt by someone within the past year? If so, by whom?: No Are you DNR?: No Advance Directives: No Advance Directives Information Provided: Yes Advance Directives on File: No service: No Current occupational status: retired Cognitive needs: No Hearing needs: Yes (hear aide) Vision needs: Yes (glasses) Meds Allergies Allergy/AdvReac Type Severity Reaction Status Date / Time Shellfish Allergy Mild SWELLING Uncoded 06/06/24 11:04 Home Medications ?Medication ?Instructions ?Recorded ?Confirmed ?Last Taken ?Type apixaban 5 mg tablet 5 mg PO BID 08/14/20 05/29/25 05/26/25 History atorvastatin 20 mg tablet 20 mg PO DAILY 08/14/20 05/29/25 Unknown History losartan 100 mg tablet 100 mg PO DAILY 08/14/20 05/29/25 05/29/25 History chlorthalidone 25 mg tablet 25 mg PO Q OTHER DAY 04/02/22 05/29/25 Unknown History metoprolol tartrate 25 mg tablet 25 mg PO BID 11/30/23 05/29/25 05/29/25 History amlodipine 2.5 mg tablet 2.5 mg PO DAILY 06/06/24 05/29/25 05/29/25 History Exam Height,Weight and Vital Signs: Height 5 ft 7 in Weight 68.492 kg Pertinent Lab Results Pertinent Lab Results: Laboratory Tests 08/10/23 11/19/24 10:27 11:06 WBC 7.4 RBC 4.83 Hgb 15.3 Hct 43.8 Plt Count 231 Sodium 141 Potassium 3.4 Chloride 104 Carbon Dioxide 29 BUN 17 H Creatinine 1.21 Narrative Narrative: ECHO 2022 Left ventricle size is normal There is moderate concentric left ventricular hypertrophy Overall left ventricular systolic function is normal with EF 60-65% Cannot assess diastolic function due to presence of atrial fibrillation No evidence of wall motion abnormalities Left atrium is moderately dilated The right ventricular systolic funcion is normal There is mild aortic regurgitation There is mild mitral regurgitation There is no evidence of pulmonary hypertension The ascending aorta is dilated, measuring up to 3.9 cm Compared to 2020 report, no real change Assessment and Plan Assessment Anesthesia Assessment: Chart Reviewed Final Anesthetic Review Family History of Problems with Anesthesia: No Documented by User: Godwin Claros MD 05/29/25 08:23 [facility] Past Medical History Medical History Colon polyp History of cardioversion Afib CHF (congestive heart failure) HTN (hypertension) Hyperlipidemia Functional capacity: independent ambulation Surgical History Surgical History Hx of bilateral cataract extraction H/O colonoscopy No history of previous surgery History of Problems with Anesthesia: No Social History Social History Housing: House Are you a primary healthcare network consultant to a significant other at home: No Do you presently have visiting nurse or other home services: No Alcohol intake: current Alcohol intake frequency: does not drink Alcohol type: beer Patient Tobacco Use Status: Former Tobacco user Tobacco use type: Cigar e-Cigarette/Vaping Use: Never Used Second Hand Smoke Exposure: No Use of substances other than those prescribed or required for medical reasons: No Have you been hit, kicked, punched, or otherwise hurt by someone within the past year? If so, by whom?: No Are you DNR?: No Advance Directives: No Advance Directives Information Provided: Yes Advance Directives on File: No service: No Current occupational status: retired Cognitive needs: No Hearing needs: Yes (hear aide) Vision needs: Yes (glasses) Meds Allergies Allergy/AdvReac Type Severity Reaction Status Date / Time Shellfish Allergy Mild SWELLING Uncoded 06/06/24 11:04 Home Medications ?Medication ?Instructions ?Recorded ?Confirmed ?Last Taken ?Type apixaban 5 mg tablet 5 mg PO BID 08/14/20 05/29/25 05/26/25 History atorvastatin 20 mg tablet 20 mg PO DAILY 08/14/20 05/29/25 Unknown History losartan 100 mg tablet 100 mg PO DAILY 08/14/20 05/29/25 05/29/25 History chlorthalidone 25 mg tablet 25 mg PO Q OTHER DAY 04/02/22 05/29/25 Unknown History metoprolol tartrate 25 mg tablet 25 mg PO BID 11/30/23 05/29/25 05/29/25 History amlodipine 2.5 mg tablet 2.5 mg PO DAILY 06/06/24 05/29/25 05/29/25 History Exam Exam Date and Time: 05/29/2025 Airway Mallampati Class: II TM Dist: >3cm Denture: Lower Heart: ok Lungs: ok Other: ok Assessment and Plan Assessment Anesthesia Assessment: Anesthesia Plan Discussed Final Anesthetic Review History of Problems with Anesthesia: No NPO: Yes ASA Class: III Final Preanesthetic Review: No Changes in Pt Med Stat, Meds/Allgs Chart Reviewed, Consent Obtained/Reviewed and Anes Risks/Benef Reviewed Patient Risk: Intermediate Procedure Risk: Low Anesthetic Plan Anesthetic Plan: MAC: Disposition: Standard PACU
[2025-05-29 07:06] VITALS: BP 185/96; PULSE 63; RESP 14; TEMP 36.6; O2SAT 98
[2025-05-29] MEDS: Lactated Ringers 1,000 ML 100 ML IVCONT (07:17)
[2025-05-29 09:36] VITALS: BP 127/73; PULSE 61; RESP 16; TEMP 36.6; O2SAT 97
--- NOTE | 2025-05-29 09:36 | P.BOP_ITS ---
Brief Operative Note Date of Service: 05/29/25 Pre-op diagnosis: Screening Post-op diagnosis: other (Polyps) Procedure: Colonoscopy to the cecum with hot snare polypectomy x 3 and placement of 2 Resolution clips on cecal polyp site, and 1 Resolution clip on the other two polyp sites Surgeon: Pablo Mora MD Anesthesia: MAC Was an High [employer] Counselor used for this Procedure?: No Estimated blood loss (mL): 2.0 Pathology: other (A. Transverse colon polyp B. Cecal polyp C. Polyp at 60cm) Condition: stable Disposition: PACU
[2025-05-29 09:51] VITALS: BP 106/82; PULSE 63; RESP 13; O2SAT 97
[2025-05-29 10:00] VITALS: BP 136/74; PULSE 57; RESP 12; TEMP 36.3; O2SAT 97
--- NOTE | 2025-05-29 10:28 | OP_ITS ---
DATE OF SERVICE: 05/29/2025 SURGEON: Pablo Mora MD INDICATIONS: The patient presents for followup of colorectal cancer screening and personal history of tubular adenomas of the colon. Full consent was obtained from him for this, including risks of bleeding and perforation. PREOPERATIVE DIAGNOSIS: POSTOPERATIVE DIAGNOSIS: PROCEDURE PERFORMED: Colonoscopy to the cecum with hot snare polypectomy x 3 and placement of a total of 4 resolution clips. ESTIMATED BLOOD LOSS: COMPLICATIONS: ANESTHESIA: Medication used, monitored anesthesia care. ASSISTANTS: SPECIMENS: PREOPERATIVE DIAGNOSES: Colorectal cancer screening and personal history of tubular adenoma of the colon. POSTOPERATIVE DIAGNOSES: Colorectal cancer screening and personal history of tubular adenoma of the colon, colon polyps, diverticulosis, and internal hemorrhoids. DESCRIPTION OF PROCEDURE: The patient was placed in the left lateral decubitus position. The digital rectal exam revealed no abnormalities. The [employer] video pediatric colonoscope was entered into the rectum and advanced easily to the cecum. Once in the cecum I did identify cecal pouch with appendiceal orifice and a normal-appearing ileocecal valve. There was transillumination of light deep in the lower quadrant. The entire cecum appeared normal. However on a fold, just opposite the ileocecal valve bordering between the cecum and the ascending colon, was a flat lobulated polypoid lesion which probably represented the same area that had some adenomatous tissue that was removed in 2022. This had to be removed in piecemeal fashion by hot snare polypectomy. Two pieces were removed. There was no definitive residual tissue remaining. I did place 2 resolution clips onto the polypectomy site with good deployment and good hemostasis. There was no sign of any active bleeding after irrigation. One small piece of the polyp was recovered by suction. The other larger piece had to be recovered with a retrieval net and taken out of the patient. The scope was then advanced back to the region of the polypectomy site. Again, there was no sign of bleeding. The scope was slowly withdrawn assessing all mucosal surfaces carefully. Preparation was excellent. In the transverse colon was an approximately 1 cm polyp, which was removed by hot snare polypectomy recovered by suction. The polypectomy site appeared clean, without any sign of residual polyp nor bleeding. A single resolution clip was applied to the polypectomy site with good deployment and good hemostasis. At 60 cm was an approximately 1 cm polyp, which was removed by hot snare polypectomy recovered by suction. The polypectomy site appeared clean, without any sign of residual polyp or bleeding. A single resolution clip was applied to the polypectomy site with good deployment and good hemostasis. I did not visualize any other polyps, colitis, nor angiodysplasia. There was a mild amount of sigmoid diverticulosis. In the rectum, the scope was retroflexed visualizing internal hemorrhoids, but no other pathology. The rectal mucosa appeared normal. The scope was straightened and withdrawn from the patient. He tolerated the procedure well and was returned to the recovery area in stable condition. IMPRESSION: 1. Colon polyps. 2. Diverticulosis. 3. Internal hemorrhoids. PLAN: The results of the pathology will be checked. Given these findings, we would have to consider repeating a colonoscopy at some point to particularly reinspect the area of the polypectomy site in the region of the ascending colon and the cecum. He is 79 years old, but is in otherwise good clinical condition. I will plan to see him sometime in 2025 to review that with him and then most likely will recommend a followup colonoscopy within a year or so as long as his clinical condition permits. He was advised to resume his Eliquis in 48 hours. He was advised to avoid all aspirin and NSAIDs long-term while on Eliquis. He was advised to call me if he has problems, before the next visit. This has been discussed with his grandson. MD FOUZIA Sims/COY / [id number] MTDD
== END 2025-05-29 10:23 | disposition home or self-care (01) ==
PROVIDERS: Visit Provider Internal Medicine
PROC: 0DJD8ZZ Inspection of Lower Intestinal Tract, Via Natural or Artificial Opening Endoscopic (ICD-10-PCS; CPT 45378; principal; 2025-05-29 08:20)
DX: Z12.11 Encounter for screening for malignant neoplasm of colon (principal); Z86.0101 Personal history of adenomatous and serrated colon polyps; K57.30 Diverticulosis of large intestine without perforation or abscess without bleeding; K64.8 Other hemorrhoids; D12.0 Benign neoplasm of cecum; D12.3 Benign neoplasm of transverse colon; K63.5 Polyp of colon
CPT/HCPCS: 45385; 88305; J2003; J2704; J3010